=== PATIENT | female | born 1955 | race Caucasian/White ===

== ENCOUNTER 2022-12-24 17:12 | Emergency (ER) | payer MEDICARE, MEDICAID ==
[2022-12-24] MEDS: ALPRAZolam 0.25 MG Tab PO ONE (17:27)
[2022-12-24 21:15] LABS: CHLORIDE,CL 105 mmol/L (98-107); SODIUM,NA 144 mmol/L (136-145)
[2022-12-24 21:16] LABS: ANION GAP 11.6 mmol/L (5-15); ESTIMATED GFR 80 mL/min (>=60)
== END 2022-12-24 21:37 | disposition short-term general hospital (02) ==
LOC: VM.ED 17:12
DX: S72.491A Other fracture of lower end of right femur, initial encounter for closed fracture (principal); W18.30XA Fall on same level, unspecified, initial encounter; Y99.0 Civilian activity done for income or pay
CPT/HCPCS: 36415; 73560-RT; 80053; 85025; 99284; 99285; A9270-GY

== ENCOUNTER 2023-01-02 12:57 | Inpatient (IN) | payer MEDICARE, MEDICAID ==
[2023-01-02] MEDS ORDERED: Bisacodyl 10 MG Supp RECTAL PRN (15:53)
[2023-01-02] MEDS: QUEtiapine 25 MG Tab PO SCH (20:23)
[2023-01-02] MEDS: Divalproex Sodium 500 MG Tab.ER PO SCH (20:24)
[2023-01-02] MEDS: LORazepam 0.5 MG Tab PO PRN (20:24)
[2023-01-02] MEDS: Aspirin 81 MG Tab.EC PO SCH (20:24)
[2023-01-02] MEDS: Folic Acid 1 MG Tab PO SCH (20:24)
[2023-01-02] MEDS: Calcium Carbonate/Vitamin D3 1250 MG-5 MCG Tab PO SCH (20:25)
[2023-01-03] MEDS: predniSONE 10 MG Tab PO SCH (09:40)
[2023-01-03] MEDS: Aspirin 81 MG Tab.EC PO SCH ×2 (09:40→20:32)
[2023-01-03] MEDS: Furosemide 20 MG Tab PO SCH (09:41)
[2023-01-03] MEDS: Spironolactone 25 MG Tab PO SCH (09:41)
[2023-01-03] MEDS: Folic Acid 1 MG Tab PO SCH ×2 (09:41→20:32)
[2023-01-03] MEDS: Multivitamin Tab PO SCH (09:41)
[2023-01-03] MEDS: Loratadine 10 MG Tab PO SCH (09:41)
[2023-01-03] MEDS: Divalproex Sodium 500 MG Tab.ER PO SCH ×2 (09:41→20:32)
[2023-01-03] MEDS: Sertraline 25 MG Tab PO SCH (09:41)
[2023-01-03] MEDS: QUEtiapine 25 MG Tab PO SCH ×3 (09:41→20:32)
[2023-01-03] MEDS: Calcium Carbonate/Vitamin D3 1250 MG-5 MCG Tab PO SCH ×2 (09:41→20:32)
[2023-01-03] MEDS: Acetaminophen 500 MG Tab PO PRN (10:15)
[2023-01-03] MEDS: LORazepam 0.5 MG Tab PO PRN ×2 (13:40→21:55)
[2023-01-03] MEDS: Oxybutynin 5 MG Tab PO SCH (17:26)
[2023-01-04] MEDS: Acetaminophen 500 MG Tab PO PRN (09:27)
[2023-01-04] MEDS: Folic Acid 1 MG Tab PO SCH ×2 (09:27→20:39)
[2023-01-04] MEDS: Furosemide 20 MG Tab PO SCH (09:27)
[2023-01-04] MEDS: Loratadine 10 MG Tab PO SCH (09:27)
[2023-01-04] MEDS: Divalproex Sodium 500 MG Tab.ER PO SCH ×2 (09:27→20:39)
[2023-01-04] MEDS: Calcium Carbonate/Vitamin D3 1250 MG-5 MCG Tab PO SCH ×2 (09:27→20:39)
[2023-01-04] MEDS: QUEtiapine 25 MG Tab PO SCH ×3 (09:27→20:38)
[2023-01-04] MEDS: LORazepam 0.5 MG Tab PO PRN (09:28)
[2023-01-04] MEDS: Multivitamin Tab PO SCH (09:28)
[2023-01-04] MEDS: Sertraline 25 MG Tab PO SCH (09:28)
[2023-01-04] MEDS: Oxybutynin 5 MG Tab PO SCH ×2 (09:28→13:39)
[2023-01-04] MEDS: Aspirin 81 MG Tab.EC PO SCH ×2 (09:28→20:39)
[2023-01-04] MEDS: predniSONE 10 MG Tab PO SCH (09:28)
[2023-01-04] MEDS: Spironolactone 25 MG Tab PO SCH (09:28)
[2023-01-05] MEDS: LORazepam 0.5 MG Tab PO PRN ×3 (02:50→20:50)
[2023-01-05] MEDS: Spironolactone 25 MG Tab PO SCH (08:00)
[2023-01-05] MEDS: Furosemide 20 MG Tab PO SCH (08:00)
[2023-01-05] MEDS: Folic Acid 1 MG Tab PO SCH ×2 (08:00→20:49)
[2023-01-05] MEDS: Multivitamin Tab PO SCH (08:00)
[2023-01-05] MEDS: Sertraline 25 MG Tab PO SCH (08:00)
[2023-01-05] MEDS: Loratadine 10 MG Tab PO SCH (08:00)
[2023-01-05] MEDS: QUEtiapine 25 MG Tab PO SCH ×3 (08:00→20:50)
[2023-01-05] MEDS: Aspirin 81 MG Tab.EC PO SCH ×2 (08:00→20:50)
[2023-01-05] MEDS: predniSONE 10 MG Tab PO SCH (08:00)
[2023-01-05] MEDS: Oxybutynin 5 MG Tab PO SCH ×2 (08:00→14:01)
[2023-01-05] MEDS: Calcium Carbonate/Vitamin D3 1250 MG-5 MCG Tab PO SCH ×2 (08:00→20:49)
[2023-01-05] MEDS: Divalproex Sodium 500 MG Tab.ER PO SCH ×2 (08:01→20:49)
[2023-01-06] MEDS: Loratadine 10 MG Tab PO SCH (09:10)
[2023-01-06] MEDS: Aspirin 81 MG Tab.EC PO SCH ×2 (09:10→20:50)
[2023-01-06] MEDS: Multivitamin Tab PO SCH (09:10)
[2023-01-06] MEDS: Spironolactone 25 MG Tab PO SCH (09:10)
[2023-01-06] MEDS: Calcium Carbonate/Vitamin D3 1250 MG-5 MCG Tab PO SCH ×2 (09:10→20:49)
[2023-01-06] MEDS: Furosemide 20 MG Tab PO SCH (09:10)
[2023-01-06] MEDS: Sertraline 25 MG Tab PO SCH (09:10)
[2023-01-06] MEDS: predniSONE 5 MG Tab PO SCH (09:11)
[2023-01-06] MEDS: Oxybutynin 5 MG Tab PO SCH ×2 (09:11→13:42)
[2023-01-06] MEDS: QUEtiapine 25 MG Tab PO SCH ×3 (09:11→20:49)
[2023-01-06] MEDS: Folic Acid 1 MG Tab PO SCH ×2 (09:11→20:50)
[2023-01-06] MEDS: Divalproex Sodium 500 MG Tab.ER PO SCH ×2 (09:11→20:50)
[2023-01-06] MEDS: LORazepam 0.5 MG Tab PO PRN ×2 (11:14→20:51)
[2023-01-07] MEDS: Divalproex Sodium 500 MG Tab.ER PO SCH ×2 (10:05→20:48)
[2023-01-07] MEDS: Oxybutynin 5 MG Tab PO SCH ×2 (10:05→13:00)
[2023-01-07] MEDS: Spironolactone 25 MG Tab PO SCH (10:05)
[2023-01-07] MEDS: Sertraline 25 MG Tab PO SCH (10:05)
[2023-01-07] MEDS: LORazepam 0.5 MG Tab PO PRN ×2 (10:06→20:48)
[2023-01-07] MEDS: Folic Acid 1 MG Tab PO SCH ×2 (10:06→20:48)
[2023-01-07] MEDS: Aspirin 81 MG Tab.EC PO SCH ×2 (10:06→20:48)
[2023-01-07] MEDS: Calcium Carbonate/Vitamin D3 1250 MG-5 MCG Tab PO SCH ×2 (10:06→20:47)
[2023-01-07] MEDS: QUEtiapine 25 MG Tab PO SCH ×3 (10:06→20:48)
[2023-01-07] MEDS: Loratadine 10 MG Tab PO SCH (10:06)
[2023-01-07] MEDS: Furosemide 20 MG Tab PO SCH (10:06)
[2023-01-07] MEDS: predniSONE 5 MG Tab PO SCH (10:06)
[2023-01-07] MEDS: Multivitamin Tab PO SCH (10:06)
[2023-01-08] MEDS: LORazepam 0.5 MG Tab PO PRN ×2 (06:15→20:54)
[2023-01-08] MEDS: Aspirin 81 MG Tab.EC PO SCH ×2 (09:53→20:54)
[2023-01-08] MEDS: Furosemide 20 MG Tab PO SCH (09:53)
[2023-01-08] MEDS: Folic Acid 1 MG Tab PO SCH ×2 (09:53→20:55)
[2023-01-08] MEDS: Sertraline 25 MG Tab PO SCH (09:53)
[2023-01-08] MEDS: Loratadine 10 MG Tab PO SCH (09:54)
[2023-01-08] MEDS: QUEtiapine 25 MG Tab PO SCH ×3 (09:54→20:53)
[2023-01-08] MEDS: Multivitamin Tab PO SCH (09:54)
[2023-01-08] MEDS: predniSONE 5 MG Tab PO SCH (09:54)
[2023-01-08] MEDS: Spironolactone 25 MG Tab PO SCH (09:54)
[2023-01-08] MEDS: Calcium Carbonate/Vitamin D3 1250 MG-5 MCG Tab PO SCH ×2 (09:54→20:55)
[2023-01-08] MEDS: Divalproex Sodium 500 MG Tab.ER PO SCH ×2 (09:54→20:53)
[2023-01-08] MEDS: Oxybutynin 5 MG Tab PO SCH ×2 (09:54→14:11)
[2023-01-08] MEDS: Acetaminophen 500 MG Tab PO PRN (20:57)
[2023-01-09] MEDS: Alendronate 70 MG Tab PO SCH (07:09)
[2023-01-09] MEDS: LORazepam 0.5 MG Tab PO PRN ×2 (08:41→21:12)
[2023-01-09] MEDS: Aspirin 81 MG Tab.EC PO SCH ×2 (08:42→21:13)
[2023-01-09] MEDS: Loratadine 10 MG Tab PO SCH (08:42)
[2023-01-09] MEDS: Sertraline 25 MG Tab PO SCH (08:43)
[2023-01-09] MEDS: Furosemide 20 MG Tab PO SCH (08:43)
[2023-01-09] MEDS: predniSONE 5 MG Tab PO SCH (08:43)
[2023-01-09] MEDS: QUEtiapine 25 MG Tab PO SCH ×3 (08:43→21:13)
[2023-01-09] MEDS: Multivitamin Tab PO SCH (08:44)
[2023-01-09] MEDS: Spironolactone 25 MG Tab PO SCH (08:44)
[2023-01-09] MEDS: Folic Acid 1 MG Tab PO SCH ×2 (08:44→21:13)
[2023-01-09] MEDS: Divalproex Sodium 500 MG Tab.ER PO SCH ×2 (08:44→21:13)
[2023-01-09] MEDS: Oxybutynin 5 MG Tab PO SCH ×2 (08:44→13:57)
[2023-01-09] MEDS: Acetaminophen 500 MG Tab PO PRN ×3 (08:45→21:13)
[2023-01-09] MEDS: Calcium Carbonate/Vitamin D3 1250 MG-5 MCG Tab PO SCH ×2 (08:45→21:15)
[2023-01-10] MEDS: Folic Acid 1 MG Tab PO SCH ×2 (10:01→21:53)
[2023-01-10] MEDS: Furosemide 20 MG Tab PO SCH (10:01)
[2023-01-10] MEDS: Loratadine 10 MG Tab PO SCH (10:01)
[2023-01-10] MEDS: QUEtiapine 25 MG Tab PO SCH ×3 (10:02→21:53)
[2023-01-10] MEDS: Multivitamin Tab PO SCH (10:02)
[2023-01-10] MEDS: Spironolactone 25 MG Tab PO SCH (10:02)
[2023-01-10] MEDS: predniSONE 5 MG Tab PO SCH (10:02)
[2023-01-10] MEDS: Aspirin 81 MG Tab.EC PO SCH ×2 (10:02→21:53)
[2023-01-10] MEDS: Oxybutynin 5 MG Tab PO SCH ×2 (10:02→13:38)
[2023-01-10] MEDS: Sertraline 25 MG Tab PO SCH (10:02)
[2023-01-10] MEDS: Divalproex Sodium 500 MG Tab.ER PO SCH ×2 (10:03→21:53)
[2023-01-10] MEDS: Calcium Carbonate/Vitamin D3 1250 MG-5 MCG Tab PO SCH ×2 (10:03→21:53)
[2023-01-11] MEDS: LORazepam 0.5 MG Tab PO PRN ×2 (05:26→20:03)
[2023-01-11] MEDS: Acetaminophen 500 MG Tab PO PRN ×2 (05:35→20:06)
[2023-01-11] MEDS: Calcium Carbonate/Vitamin D3 1250 MG-5 MCG Tab PO SCH ×2 (09:32→20:05)
[2023-01-11] MEDS: QUEtiapine 25 MG Tab PO SCH ×3 (09:32→20:02)
[2023-01-11] MEDS: Divalproex Sodium 500 MG Tab.ER PO SCH ×2 (09:32→20:05)
[2023-01-11] MEDS: Multivitamin Tab PO SCH (09:32)
[2023-01-11] MEDS: Oxybutynin 5 MG Tab PO SCH ×2 (09:32→13:20)
[2023-01-11] MEDS: Folic Acid 1 MG Tab PO SCH ×2 (09:32→20:03)
[2023-01-11] MEDS: Sertraline 25 MG Tab PO SCH (09:32)
[2023-01-11] MEDS: Spironolactone 25 MG Tab PO SCH (09:32)
[2023-01-11] MEDS: Loratadine 10 MG Tab PO SCH (09:32)
[2023-01-11] MEDS: Aspirin 81 MG Tab.EC PO SCH ×2 (09:32→20:03)
[2023-01-11] MEDS: Furosemide 20 MG Tab PO SCH (09:32)
[2023-01-11] MEDS: predniSONE 5 MG Tab PO SCH (09:32)
[2023-01-12] MEDS: LORazepam 0.5 MG Tab PO PRN ×2 (07:50→19:49)
[2023-01-12] MEDS: Acetaminophen 500 MG Tab PO PRN ×2 (07:51→19:53)
[2023-01-12] MEDS: Calcium Carbonate/Vitamin D3 1250 MG-5 MCG Tab PO SCH ×3 (09:54→22:45)
[2023-01-12] MEDS: Oxybutynin 5 MG Tab PO SCH ×2 (09:54→15:25)
[2023-01-12] MEDS: Sertraline 25 MG Tab PO SCH (09:54)
[2023-01-12] MEDS: Multivitamin Tab PO SCH (09:55)
[2023-01-12] MEDS: Aspirin 81 MG Tab.EC PO SCH ×3 (09:55→22:45)
[2023-01-12] MEDS: Loratadine 10 MG Tab PO SCH (09:55)
[2023-01-12] MEDS: Folic Acid 1 MG Tab PO SCH ×3 (09:55→22:45)
[2023-01-12] MEDS: QUEtiapine 25 MG Tab PO SCH ×4 (09:55→22:45)
[2023-01-12] MEDS: predniSONE 5 MG Tab PO SCH (09:55)
[2023-01-12] MEDS: Divalproex Sodium 500 MG Tab.ER PO SCH ×3 (09:55→22:45)
[2023-01-12] MEDS: Furosemide 20 MG Tab PO SCH (09:55)
[2023-01-12] MEDS: Spironolactone 25 MG Tab PO SCH (09:55)
[2023-01-13] MEDS: Furosemide 20 MG Tab PO SCH (10:00)
[2023-01-13] MEDS: Loratadine 10 MG Tab PO SCH (10:04)
[2023-01-13] MEDS: Calcium Carbonate/Vitamin D3 1250 MG-5 MCG Tab PO SCH ×2 (10:04→20:02)
[2023-01-13] MEDS: Oxybutynin 5 MG Tab PO SCH ×2 (10:04→15:51)
[2023-01-13] MEDS: Spironolactone 25 MG Tab PO SCH (10:04)
[2023-01-13] MEDS: Divalproex Sodium 500 MG Tab.ER PO SCH ×2 (10:04→20:01)
[2023-01-13] MEDS: Aspirin 81 MG Tab.EC PO SCH ×2 (10:04→20:00)
[2023-01-13] MEDS: Multivitamin Tab PO SCH (10:04)
[2023-01-13] MEDS: Folic Acid 1 MG Tab PO SCH ×2 (10:05→20:01)
[2023-01-13] MEDS: predniSONE 5 MG Tab PO SCH (10:05)
[2023-01-13] MEDS: Sertraline 25 MG Tab PO SCH (10:05)
[2023-01-13] MEDS: QUEtiapine 25 MG Tab PO SCH ×3 (10:08→20:00)
[2023-01-13] MEDS: LORazepam 0.5 MG Tab PO PRN (20:00)
[2023-01-13] MEDS: Acetaminophen 500 MG Tab PO PRN (20:02)
[2023-01-14] MEDS: LORazepam 0.5 MG Tab PO PRN ×2 (04:43→20:16)
[2023-01-14] MEDS: Divalproex Sodium 500 MG Tab.ER PO SCH ×2 (09:48→20:15)
[2023-01-14] MEDS: QUEtiapine 25 MG Tab PO SCH ×3 (09:48→20:15)
[2023-01-14] MEDS: Aspirin 81 MG Tab.EC PO SCH ×2 (09:48→20:16)
[2023-01-14] MEDS: Oxybutynin 5 MG Tab PO SCH ×2 (09:48→13:27)
[2023-01-14] MEDS: Furosemide 20 MG Tab PO SCH (09:48)
[2023-01-14] MEDS: Loratadine 10 MG Tab PO SCH (09:49)
[2023-01-14] MEDS: predniSONE 5 MG Tab PO SCH (09:49)
[2023-01-14] MEDS: Spironolactone 25 MG Tab PO SCH (09:49)
[2023-01-14] MEDS: Multivitamin Tab PO SCH (09:49)
[2023-01-14] MEDS: Folic Acid 1 MG Tab PO SCH ×2 (09:49→20:16)
[2023-01-14] MEDS: Calcium Carbonate/Vitamin D3 1250 MG-5 MCG Tab PO SCH ×2 (09:49→20:16)
[2023-01-14] MEDS: Sertraline 25 MG Tab PO SCH (09:49)
[2023-01-14] MEDS: Acetaminophen 500 MG Tab PO PRN (13:29)
[2023-01-15] MEDS: Aspirin 81 MG Tab.EC PO SCH ×2 (08:12→20:00)
[2023-01-15] MEDS: Furosemide 20 MG Tab PO SCH (08:12)
[2023-01-15] MEDS: Sertraline 25 MG Tab PO SCH (08:13)
[2023-01-15] MEDS: Spironolactone 25 MG Tab PO SCH (08:13)
[2023-01-15] MEDS: predniSONE 5 MG Tab PO SCH (08:13)
[2023-01-15] MEDS: Divalproex Sodium 500 MG Tab.ER PO SCH ×2 (08:13→20:00)
[2023-01-15] MEDS: Oxybutynin 5 MG Tab PO SCH ×2 (08:13→13:19)
[2023-01-15] MEDS: Multivitamin Tab PO SCH (08:13)
[2023-01-15] MEDS: Loratadine 10 MG Tab PO SCH (08:13)
[2023-01-15] MEDS: QUEtiapine 25 MG Tab PO SCH ×3 (08:13→20:00)
[2023-01-15] MEDS: Calcium Carbonate/Vitamin D3 1250 MG-5 MCG Tab PO SCH ×2 (08:13→20:01)
[2023-01-15] MEDS: Folic Acid 1 MG Tab PO SCH ×2 (08:13→20:01)
[2023-01-15] MEDS: LORazepam 0.5 MG Tab PO PRN (20:02)
[2023-01-16] MEDS: Alendronate 70 MG Tab PO SCH (06:00)
[2023-01-16] MEDS: Divalproex Sodium 500 MG Tab.ER PO SCH ×2 (08:51→20:34)
[2023-01-16] MEDS: Multivitamin Tab PO SCH (08:51)
[2023-01-16] MEDS: Oxybutynin 5 MG Tab PO SCH ×2 (08:51→13:58)
[2023-01-16] MEDS: Aspirin 81 MG Tab.EC PO SCH ×2 (08:51→20:34)
[2023-01-16] MEDS: Calcium Carbonate/Vitamin D3 1250 MG-5 MCG Tab PO SCH ×2 (08:51→20:34)
[2023-01-16] MEDS: Loratadine 10 MG Tab PO SCH (08:51)
[2023-01-16] MEDS: Spironolactone 25 MG Tab PO SCH (08:51)
[2023-01-16] MEDS: QUEtiapine 25 MG Tab PO SCH ×3 (08:52→20:34)
[2023-01-16] MEDS: Furosemide 20 MG Tab PO SCH (08:52)
[2023-01-16] MEDS: Sertraline 25 MG Tab PO SCH (08:52)
[2023-01-16] MEDS: predniSONE 5 MG Tab PO SCH (08:52)
[2023-01-16] MEDS: Folic Acid 1 MG Tab PO SCH ×2 (08:52→20:34)
[2023-01-17] MEDS: Oxybutynin 5 MG Tab PO SCH ×2 (09:44→13:49)
[2023-01-17] MEDS: Furosemide 20 MG Tab PO SCH (09:44)
[2023-01-17] MEDS: Divalproex Sodium 500 MG Tab.ER PO SCH ×2 (09:44→20:16)
[2023-01-17] MEDS: Spironolactone 25 MG Tab PO SCH (09:44)
[2023-01-17] MEDS: Multivitamin Tab PO SCH (09:44)
[2023-01-17] MEDS: Loratadine 10 MG Tab PO SCH (09:44)
[2023-01-17] MEDS: Sertraline 25 MG Tab PO SCH (09:44)
[2023-01-17] MEDS: Acetaminophen 500 MG Tab PO PRN ×2 (09:44→13:50)
[2023-01-17] MEDS: predniSONE 5 MG Tab PO SCH (09:44)
[2023-01-17] MEDS: Folic Acid 1 MG Tab PO SCH ×2 (09:44→20:16)
[2023-01-17] MEDS: Calcium Carbonate/Vitamin D3 1250 MG-5 MCG Tab PO SCH ×2 (09:44→20:16)
[2023-01-17] MEDS: Aspirin 81 MG Tab.EC PO SCH ×2 (09:44→20:16)
[2023-01-17] MEDS: QUEtiapine 25 MG Tab PO SCH ×3 (09:44→20:16)
[2023-01-18] MEDS: Loratadine 10 MG Tab PO SCH (08:48)
[2023-01-18] MEDS: Divalproex Sodium 500 MG Tab.ER PO SCH ×2 (08:48→20:22)
[2023-01-18] MEDS: Folic Acid 1 MG Tab PO SCH ×2 (08:48→20:22)
[2023-01-18] MEDS: Calcium Carbonate/Vitamin D3 1250 MG-5 MCG Tab PO SCH ×2 (08:48→20:22)
[2023-01-18] MEDS: Sertraline 25 MG Tab PO SCH (08:48)
[2023-01-18] MEDS: Furosemide 20 MG Tab PO SCH (08:48)
[2023-01-18] MEDS: Aspirin 81 MG Tab.EC PO SCH ×2 (08:48→20:22)
[2023-01-18] MEDS: predniSONE 5 MG Tab PO SCH (08:49)
[2023-01-18] MEDS: Oxybutynin 5 MG Tab PO SCH ×2 (08:49→13:54)
[2023-01-18] MEDS: Acetaminophen 500 MG Tab PO PRN (08:49)
[2023-01-18] MEDS: Multivitamin Tab PO SCH (08:49)
[2023-01-18] MEDS: QUEtiapine 25 MG Tab PO SCH ×3 (08:49→20:23)
[2023-01-18] MEDS: Spironolactone 25 MG Tab PO SCH (08:50)
[2023-01-19] MEDS: Sertraline 25 MG Tab PO SCH (08:58)
[2023-01-19] MEDS: Calcium Carbonate/Vitamin D3 1250 MG-5 MCG Tab PO SCH ×2 (08:58→20:30)
[2023-01-19] MEDS: Folic Acid 1 MG Tab PO SCH ×2 (08:58→20:26)
[2023-01-19] MEDS: predniSONE 5 MG Tab PO SCH (08:58)
[2023-01-19] MEDS: Aspirin 81 MG Tab.EC PO SCH ×2 (08:58→20:26)
[2023-01-19] MEDS: QUEtiapine 25 MG Tab PO SCH ×3 (08:58→20:26)
[2023-01-19] MEDS: Loratadine 10 MG Tab PO SCH (08:58)
[2023-01-19] MEDS: Furosemide 20 MG Tab PO SCH (08:58)
[2023-01-19] MEDS: Divalproex Sodium 500 MG Tab.ER PO SCH ×2 (08:58→20:26)
[2023-01-19] MEDS: Spironolactone 25 MG Tab PO SCH (08:58)
[2023-01-19] MEDS: Multivitamin Tab PO SCH (08:58)
[2023-01-19] MEDS: Oxybutynin 5 MG Tab PO SCH ×2 (08:58→15:11)
[2023-01-20] MEDS: LORazepam 0.5 MG Tab PO PRN ×2 (04:36→20:01)
[2023-01-20] MEDS: Acetaminophen 500 MG Tab PO PRN ×2 (05:53→09:58)
[2023-01-20] MEDS: Spironolactone 25 MG Tab PO SCH (09:01)
[2023-01-20] MEDS: Furosemide 20 MG Tab PO SCH (09:01)
[2023-01-20] MEDS: Divalproex Sodium 500 MG Tab.ER PO SCH ×2 (09:01→20:03)
[2023-01-20] MEDS: Aspirin 81 MG Tab.EC PO SCH ×2 (09:01→20:02)
[2023-01-20] MEDS: Loratadine 10 MG Tab PO SCH (09:01)
[2023-01-20] MEDS: Sertraline 25 MG Tab PO SCH (09:02)
[2023-01-20] MEDS: Folic Acid 1 MG Tab PO SCH ×2 (09:02→20:02)
[2023-01-20] MEDS: Oxybutynin 5 MG Tab PO SCH ×2 (09:02→14:08)
[2023-01-20] MEDS: predniSONE 5 MG Tab PO SCH (09:02)
[2023-01-20] MEDS: Multivitamin Tab PO SCH (09:02)
[2023-01-20] MEDS: QUEtiapine 25 MG Tab PO SCH ×3 (09:02→20:01)
[2023-01-20] MEDS: Calcium Carbonate/Vitamin D3 1250 MG-5 MCG Tab PO SCH ×2 (09:04→20:01)
[2023-01-21] MEDS: Loratadine 10 MG Tab PO SCH (09:38)
[2023-01-21] MEDS: Calcium Carbonate/Vitamin D3 1250 MG-5 MCG Tab PO SCH ×2 (09:38→20:18)
[2023-01-21] MEDS: Spironolactone 25 MG Tab PO SCH (09:38)
[2023-01-21] MEDS: Multivitamin Tab PO SCH (09:38)
[2023-01-21] MEDS: Aspirin 81 MG Tab.EC PO SCH ×2 (09:39→20:18)
[2023-01-21] MEDS: predniSONE 5 MG Tab PO SCH (09:39)
[2023-01-21] MEDS: Divalproex Sodium 500 MG Tab.ER PO SCH ×2 (09:39→20:18)
[2023-01-21] MEDS: Folic Acid 1 MG Tab PO SCH ×2 (09:39→20:18)
[2023-01-21] MEDS: Sertraline 25 MG Tab PO SCH (09:39)
[2023-01-21] MEDS: Oxybutynin 5 MG Tab PO SCH ×2 (09:39→13:24)
[2023-01-21] MEDS: Furosemide 20 MG Tab PO SCH (09:39)
[2023-01-21] MEDS: QUEtiapine 25 MG Tab PO SCH ×3 (09:39→20:18)
[2023-01-21] MEDS: LORazepam 0.5 MG Tab PO PRN (13:11)
[2023-01-22] MEDS ORDERED: METHOTREXATE SODIUM 25 MG/ML IM SCH (09:00)
[2023-01-22] MEDS: Furosemide 20 MG Tab PO SCH (09:20)
[2023-01-22] MEDS: Aspirin 81 MG Tab.EC PO SCH ×2 (09:20→20:15)
[2023-01-22] MEDS: Multivitamin Tab PO SCH (09:20)
[2023-01-22] MEDS: Oxybutynin 5 MG Tab PO SCH ×2 (09:20→13:00)
[2023-01-22] MEDS: Calcium Carbonate/Vitamin D3 1250 MG-5 MCG Tab PO SCH ×2 (09:20→20:15)
[2023-01-22] MEDS: QUEtiapine 25 MG Tab PO SCH ×3 (09:20→20:15)
[2023-01-22] MEDS: Sertraline 25 MG Tab PO SCH (09:20)
[2023-01-22] MEDS: Divalproex Sodium 500 MG Tab.ER PO SCH ×2 (09:20→20:15)
[2023-01-22] MEDS: Folic Acid 1 MG Tab PO SCH ×2 (09:20→20:15)
[2023-01-22] MEDS: Spironolactone 25 MG Tab PO SCH (09:20)
[2023-01-22] MEDS: Loratadine 10 MG Tab PO SCH (09:20)
[2023-01-22] MEDS: predniSONE 5 MG Tab PO SCH (09:20)
[2023-01-22] MEDS ORDERED: METHOTREXATE SODIUM 25 MG/ML SUBCUT SCH (09:44)
[2023-01-22] MEDS: Acetaminophen 500 MG Tab PO PRN (12:59)
[2023-01-22] MEDS: Methotrexate 2.5 MG Tab PO SCH (13:40)
[2023-01-23] MEDS: Alendronate 70 MG Tab PO SCH (06:02)
[2023-01-23] MEDS: Acetaminophen 500 MG Tab PO PRN ×2 (08:27→13:47)
[2023-01-23] MEDS: Divalproex Sodium 500 MG Tab.ER PO SCH ×2 (08:29→21:51)
[2023-01-23] MEDS: Aspirin 81 MG Tab.EC PO SCH ×2 (08:29→21:51)
[2023-01-23] MEDS: Sertraline 25 MG Tab PO SCH (08:29)
[2023-01-23] MEDS: Furosemide 20 MG Tab PO SCH (08:30)
[2023-01-23] MEDS: predniSONE 5 MG Tab PO SCH (08:30)
[2023-01-23] MEDS: Calcium Carbonate/Vitamin D3 1250 MG-5 MCG Tab PO SCH ×2 (08:30→21:51)
[2023-01-23] MEDS: Loratadine 10 MG Tab PO SCH (08:30)
[2023-01-23] MEDS: QUEtiapine 25 MG Tab PO SCH ×2 (08:30→18:59)
[2023-01-23] MEDS: Folic Acid 1 MG Tab PO SCH ×2 (08:30→21:51)
[2023-01-23] MEDS: Oxybutynin 5 MG Tab PO SCH ×2 (08:30→13:43)
[2023-01-23] MEDS: Spironolactone 25 MG Tab PO SCH (08:30)
[2023-01-23] MEDS: Multivitamin Tab PO SCH (08:31)
[2023-01-23 08:50] LABS: ANION GAP 12.8 mmol/L (5-15)
[2023-01-23] MEDS: LORazepam 0.5 MG Tab PO PRN (09:01)
[2023-01-23 11:07] LABS: CORONAVIRUS COVID-19 NAA POSITIVE (NEGATIVE)
[2023-01-23] MEDS: Nirmatrelvir/Ritonavir 300 MG/100 MG Dose Pack PO SCH ×2 (13:41→21:50)
[2023-01-24] MEDS: Divalproex Sodium 500 MG Tab.ER PO SCH ×2 (09:42→21:58)
[2023-01-24] MEDS: Calcium Carbonate/Vitamin D3 1250 MG-5 MCG Tab PO SCH ×2 (09:42→21:58)
[2023-01-24] MEDS: Sertraline 25 MG Tab PO SCH (09:42)
[2023-01-24] MEDS: Furosemide 20 MG Tab PO SCH (09:42)
[2023-01-24] MEDS: Folic Acid 1 MG Tab PO SCH ×2 (09:42→21:58)
[2023-01-24] MEDS: Oxybutynin 5 MG Tab PO SCH ×2 (09:42→13:27)
[2023-01-24] MEDS: Aspirin 81 MG Tab.EC PO SCH ×2 (09:42→21:58)
[2023-01-24] MEDS: predniSONE 5 MG Tab PO SCH (09:42)
[2023-01-24] MEDS: Spironolactone 25 MG Tab PO SCH (09:42)
[2023-01-24] MEDS: Loratadine 10 MG Tab PO SCH (09:42)
[2023-01-24] MEDS: Multivitamin Tab PO SCH (09:42)
[2023-01-24] MEDS: Nirmatrelvir/Ritonavir 300 MG/100 MG Dose Pack PO SCH ×2 (09:43→21:58)
[2023-01-25] MEDS: Sertraline 25 MG Tab PO SCH (10:11)
[2023-01-25] MEDS: Multivitamin Tab PO SCH (10:11)
[2023-01-25] MEDS: predniSONE 5 MG Tab PO SCH (10:11)
[2023-01-25] MEDS: Calcium Carbonate/Vitamin D3 1250 MG-5 MCG Tab PO SCH ×2 (10:12→22:44)
[2023-01-25] MEDS: Nirmatrelvir/Ritonavir 300 MG/100 MG Dose Pack PO SCH ×2 (10:12→22:43)
[2023-01-25] MEDS: Folic Acid 1 MG Tab PO SCH ×2 (10:12→22:45)
[2023-01-25] MEDS: Furosemide 20 MG Tab PO SCH (10:12)
[2023-01-25] MEDS: Divalproex Sodium 500 MG Tab.ER PO SCH ×2 (10:12→22:43)
[2023-01-25] MEDS: Loratadine 10 MG Tab PO SCH (10:12)
[2023-01-25] MEDS: Aspirin 81 MG Tab.EC PO SCH ×2 (10:12→22:45)
[2023-01-25] MEDS: Spironolactone 25 MG Tab PO SCH (10:12)
[2023-01-25] MEDS: Oxybutynin 5 MG Tab PO SCH ×2 (10:12→14:38)
[2023-01-25] MEDS: Acetaminophen 500 MG Tab PO PRN (22:44)
[2023-01-26] MEDS: predniSONE 5 MG Tab PO SCH (09:13)
[2023-01-26] MEDS: Furosemide 20 MG Tab PO SCH (09:13)
[2023-01-26] MEDS: Multivitamin Tab PO SCH (09:14)
[2023-01-26] MEDS: Aspirin 81 MG Tab.EC PO SCH ×2 (09:14→21:57)
[2023-01-26] MEDS: Divalproex Sodium 500 MG Tab.ER PO SCH ×2 (09:14→21:57)
[2023-01-26] MEDS: Calcium Carbonate/Vitamin D3 1250 MG-5 MCG Tab PO SCH ×2 (09:14→21:57)
[2023-01-26] MEDS: Oxybutynin 5 MG Tab PO SCH ×2 (09:14→13:06)
[2023-01-26] MEDS: Sertraline 25 MG Tab PO SCH (09:14)
[2023-01-26] MEDS: Loratadine 10 MG Tab PO SCH (09:14)
[2023-01-26] MEDS: Folic Acid 1 MG Tab PO SCH ×2 (09:14→21:57)
[2023-01-26] MEDS: Spironolactone 25 MG Tab PO SCH (09:14)
[2023-01-26] MEDS: Nirmatrelvir/Ritonavir 300 MG/100 MG Dose Pack PO SCH ×2 (09:15→21:56)
[2023-01-27] MEDS: Oxybutynin 5 MG Tab PO SCH ×2 (10:03→14:38)
[2023-01-27] MEDS: predniSONE 5 MG Tab PO SCH (10:04)
[2023-01-27] MEDS: Loratadine 10 MG Tab PO SCH (10:04)
[2023-01-27] MEDS: Multivitamin Tab PO SCH (10:04)
[2023-01-27] MEDS: Spironolactone 25 MG Tab PO SCH (10:04)
[2023-01-27] MEDS: Aspirin 81 MG Tab.EC PO SCH ×2 (10:04→20:28)
[2023-01-27] MEDS: Calcium Carbonate/Vitamin D3 1250 MG-5 MCG Tab PO SCH ×2 (10:04→20:28)
[2023-01-27] MEDS: Divalproex Sodium 500 MG Tab.ER PO SCH ×2 (10:05→20:28)
[2023-01-27] MEDS: Folic Acid 1 MG Tab PO SCH ×2 (10:05→20:28)
[2023-01-27] MEDS: Sertraline 25 MG Tab PO SCH (10:05)
[2023-01-27] MEDS: Nirmatrelvir/Ritonavir 300 MG/100 MG Dose Pack PO SCH ×2 (10:05→20:33)
[2023-01-27] MEDS: Furosemide 20 MG Tab PO SCH (10:06)
[2023-01-27] MEDS: LORazepam 0.5 MG Tab PO PRN ×2 (10:24→20:28)
[2023-01-28] MEDS: Oxybutynin 5 MG Tab PO SCH ×2 (09:29→13:48)
[2023-01-28] MEDS: Folic Acid 1 MG Tab PO SCH ×2 (09:29→20:22)
[2023-01-28] MEDS: Furosemide 20 MG Tab PO SCH (09:29)
[2023-01-28] MEDS: Divalproex Sodium 500 MG Tab.ER PO SCH ×2 (09:29→20:21)
[2023-01-28] MEDS: Spironolactone 25 MG Tab PO SCH (09:29)
[2023-01-28] MEDS: Multivitamin Tab PO SCH (09:29)
[2023-01-28] MEDS: Aspirin 81 MG Tab.EC PO SCH ×2 (09:29→20:22)
[2023-01-28] MEDS: Sertraline 25 MG Tab PO SCH (09:29)
[2023-01-28] MEDS: predniSONE 5 MG Tab PO SCH (09:29)
[2023-01-28] MEDS: Loratadine 10 MG Tab PO SCH (09:30)
[2023-01-28] MEDS: Calcium Carbonate/Vitamin D3 1250 MG-5 MCG Tab PO SCH ×2 (09:30→20:22)
[2023-01-28] MEDS: QUEtiapine 25 MG Tab PO SCH (20:22)
[2023-01-29] MEDS: Sertraline 25 MG Tab PO SCH (09:18)
[2023-01-29] MEDS: Furosemide 20 MG Tab PO SCH (09:18)
[2023-01-29] MEDS: Oxybutynin 5 MG Tab PO SCH ×2 (09:18→14:31)
[2023-01-29] MEDS: LORazepam 0.5 MG Tab PO PRN (09:19)
[2023-01-29] MEDS: Multivitamin Tab PO SCH (09:19)
[2023-01-29] MEDS: QUEtiapine 25 MG Tab PO SCH ×3 (09:19→20:37)
[2023-01-29] MEDS: Calcium Carbonate/Vitamin D3 1250 MG-5 MCG Tab PO SCH ×2 (09:19→20:36)
[2023-01-29] MEDS: Folic Acid 1 MG Tab PO SCH ×2 (09:19→20:37)
[2023-01-29] MEDS: Spironolactone 25 MG Tab PO SCH (09:19)
[2023-01-29] MEDS: Loratadine 10 MG Tab PO SCH (09:19)
[2023-01-29] MEDS: predniSONE 5 MG Tab PO SCH (09:19)
[2023-01-29] MEDS: Divalproex Sodium 500 MG Tab.ER PO SCH ×2 (09:19→20:36)
[2023-01-29] MEDS: Aspirin 81 MG Tab.EC PO SCH ×2 (09:19→20:37)
[2023-01-29] MEDS: Methotrexate 2.5 MG Tab PO SCH (14:35)
[2023-01-30] MEDS: Alendronate 70 MG Tab PO SCH (07:42)
[2023-01-30] MEDS: Folic Acid 1 MG Tab PO SCH ×2 (09:37→21:44)
[2023-01-30] MEDS: Spironolactone 25 MG Tab PO SCH (09:37)
[2023-01-30] MEDS: Calcium Carbonate/Vitamin D3 1250 MG-5 MCG Tab PO SCH ×2 (09:37→21:44)
[2023-01-30] MEDS: QUEtiapine 25 MG Tab PO SCH ×3 (09:37→21:44)
[2023-01-30] MEDS: Furosemide 20 MG Tab PO SCH (09:37)
[2023-01-30] MEDS: Divalproex Sodium 500 MG Tab.ER PO SCH ×2 (09:37→21:44)
[2023-01-30] MEDS: Loratadine 10 MG Tab PO SCH (09:37)
[2023-01-30] MEDS: Sertraline 25 MG Tab PO SCH (09:37)
[2023-01-30] MEDS: Aspirin 81 MG Tab.EC PO SCH ×2 (09:37→21:44)
[2023-01-30] MEDS: Multivitamin Tab PO SCH (09:37)
[2023-01-30] MEDS: predniSONE 5 MG Tab PO SCH (09:38)
[2023-01-30] MEDS: Oxybutynin 5 MG Tab PO SCH ×2 (09:38→16:35)
[2023-01-30] MEDS: LORazepam 0.5 MG Tab PO PRN (11:24)
[2023-01-31] MEDS: Oxybutynin 5 MG Tab PO SCH ×2 (09:07→14:15)
[2023-01-31] MEDS: Spironolactone 25 MG Tab PO SCH (09:07)
[2023-01-31] MEDS: Calcium Carbonate/Vitamin D3 1250 MG-5 MCG Tab PO SCH ×2 (09:08→20:23)
[2023-01-31] MEDS: Sertraline 25 MG Tab PO SCH (09:08)
[2023-01-31] MEDS: Aspirin 81 MG Tab.EC PO SCH ×2 (09:08→20:23)
[2023-01-31] MEDS: Multivitamin Tab PO SCH (09:08)
[2023-01-31] MEDS: Folic Acid 1 MG Tab PO SCH ×2 (09:08→20:24)
[2023-01-31] MEDS: predniSONE 5 MG Tab PO SCH (09:08)
[2023-01-31] MEDS: Furosemide 20 MG Tab PO SCH (09:08)
[2023-01-31] MEDS: Divalproex Sodium 500 MG Tab.ER PO SCH ×2 (09:08→20:23)
[2023-01-31] MEDS: QUEtiapine 25 MG Tab PO SCH ×3 (09:08→20:24)
[2023-01-31] MEDS: Loratadine 10 MG Tab PO SCH (09:08)
[2023-02-01] MEDS: Spironolactone 25 MG Tab PO SCH (09:57)
[2023-02-01] MEDS: QUEtiapine 25 MG Tab PO SCH ×3 (09:57→20:15)
[2023-02-01] MEDS: Aspirin 81 MG Tab.EC PO SCH ×2 (09:57→20:15)
[2023-02-01] MEDS: Calcium Carbonate/Vitamin D3 1250 MG-5 MCG Tab PO SCH ×2 (09:57→20:15)
[2023-02-01] MEDS: Divalproex Sodium 500 MG Tab.ER PO SCH ×2 (09:57→20:15)
[2023-02-01] MEDS: Sertraline 25 MG Tab PO SCH (09:57)
[2023-02-01] MEDS: Multivitamin Tab PO SCH (09:57)
[2023-02-01] MEDS: Oxybutynin 5 MG Tab PO SCH ×2 (09:57→13:42)
[2023-02-01] MEDS: predniSONE 5 MG Tab PO SCH (09:57)
[2023-02-01] MEDS: Folic Acid 1 MG Tab PO SCH ×2 (09:57→20:15)
[2023-02-01] MEDS: Furosemide 20 MG Tab PO SCH (09:57)
[2023-02-01] MEDS: Loratadine 10 MG Tab PO SCH (09:57)
[2023-02-02] MEDS: Oxybutynin 5 MG Tab PO SCH ×2 (09:38→13:46)
[2023-02-02] MEDS: predniSONE 5 MG Tab PO SCH (09:38)
[2023-02-02] MEDS: Aspirin 81 MG Tab.EC PO SCH ×2 (09:38→20:18)
[2023-02-02] MEDS: Divalproex Sodium 500 MG Tab.ER PO SCH ×2 (09:38→20:17)
[2023-02-02] MEDS: Sertraline 25 MG Tab PO SCH (09:38)
[2023-02-02] MEDS: Furosemide 20 MG Tab PO SCH (09:38)
[2023-02-02] MEDS: Folic Acid 1 MG Tab PO SCH ×2 (09:38→20:18)
[2023-02-02] MEDS: Multivitamin Tab PO SCH (09:38)
[2023-02-02] MEDS: Loratadine 10 MG Tab PO SCH (09:38)
[2023-02-02] MEDS: Calcium Carbonate/Vitamin D3 1250 MG-5 MCG Tab PO SCH ×2 (09:38→20:18)
[2023-02-02] MEDS: Spironolactone 25 MG Tab PO SCH (09:39)
[2023-02-02] MEDS: QUEtiapine 25 MG Tab PO SCH ×3 (09:39→20:18)
[2023-02-02] MEDS: LORazepam 0.5 MG Tab PO PRN (13:01)
[2023-02-03] MEDS: Multivitamin Tab PO SCH (09:06)
[2023-02-03] MEDS: Calcium Carbonate/Vitamin D3 1250 MG-5 MCG Tab PO SCH ×2 (09:06→19:59)
[2023-02-03] MEDS: Divalproex Sodium 500 MG Tab.ER PO SCH ×2 (09:06→19:59)
[2023-02-03] MEDS: Folic Acid 1 MG Tab PO SCH ×2 (09:07→19:59)
[2023-02-03] MEDS: predniSONE 5 MG Tab PO SCH (09:07)
[2023-02-03] MEDS: Sertraline 25 MG Tab PO SCH (09:07)
[2023-02-03] MEDS: QUEtiapine 25 MG Tab PO SCH ×3 (09:07→19:59)
[2023-02-03] MEDS: Oxybutynin 5 MG Tab PO SCH ×2 (09:07→14:41)
[2023-02-03] MEDS: Loratadine 10 MG Tab PO SCH (09:08)
[2023-02-03] MEDS: Spironolactone 25 MG Tab PO SCH (09:08)
[2023-02-03] MEDS: Aspirin 81 MG Tab.EC PO SCH ×2 (09:08→19:59)
[2023-02-03] MEDS: Furosemide 20 MG Tab PO SCH (09:08)
[2023-02-04] MEDS: Folic Acid 1 MG Tab PO SCH ×2 (08:40→20:38)
[2023-02-04] MEDS: Sertraline 25 MG Tab PO SCH (08:40)
[2023-02-04] MEDS: Furosemide 20 MG Tab PO SCH (08:40)
[2023-02-04] MEDS: Oxybutynin 5 MG Tab PO SCH ×2 (08:40→14:36)
[2023-02-04] MEDS: Divalproex Sodium 500 MG Tab.ER PO SCH ×2 (08:40→20:38)
[2023-02-04] MEDS: Multivitamin Tab PO SCH (08:40)
[2023-02-04] MEDS: predniSONE 5 MG Tab PO SCH (08:40)
[2023-02-04] MEDS: Spironolactone 25 MG Tab PO SCH (08:40)
[2023-02-04] MEDS: Aspirin 81 MG Tab.EC PO SCH ×2 (08:40→20:38)
[2023-02-04] MEDS: Calcium Carbonate/Vitamin D3 1250 MG-5 MCG Tab PO SCH ×2 (08:40→20:38)
[2023-02-04] MEDS: QUEtiapine 25 MG Tab PO SCH ×3 (08:40→20:38)
[2023-02-04] MEDS: Loratadine 10 MG Tab PO SCH (08:40)
[2023-02-05 07:17] LABS: ANION GAP 11.9 mmol/L (5-15)
[2023-02-05] MEDS: Aspirin 81 MG Tab.EC PO SCH ×2 (08:55→20:36)
[2023-02-05] MEDS: Loratadine 10 MG Tab PO SCH (08:55)
[2023-02-05] MEDS: Furosemide 20 MG Tab PO SCH (08:55)
[2023-02-05] MEDS: Oxybutynin 5 MG Tab PO SCH ×2 (08:55→13:58)
[2023-02-05] MEDS: predniSONE 5 MG Tab PO SCH (08:56)
[2023-02-05] MEDS: Calcium Carbonate/Vitamin D3 1250 MG-5 MCG Tab PO SCH ×2 (08:56→20:36)
[2023-02-05] MEDS: Sertraline 25 MG Tab PO SCH (08:56)
[2023-02-05] MEDS: Multivitamin Tab PO SCH (08:56)
[2023-02-05] MEDS: Folic Acid 1 MG Tab PO SCH ×2 (08:56→20:36)
[2023-02-05] MEDS: QUEtiapine 25 MG Tab PO SCH ×3 (08:56→20:36)
[2023-02-05] MEDS: Spironolactone 25 MG Tab PO SCH (08:56)
[2023-02-05] MEDS: Divalproex Sodium 500 MG Tab.ER PO SCH ×2 (08:56→20:36)
[2023-02-05] MEDS: Methotrexate 2.5 MG Tab PO SCH (12:47)
[2023-02-06] MEDS: Alendronate 70 MG Tab PO SCH (06:31)
[2023-02-06] MEDS: Multivitamin Tab PO SCH (09:41)
[2023-02-06] MEDS: Divalproex Sodium 500 MG Tab.ER PO SCH ×2 (09:41→20:11)
[2023-02-06] MEDS: Calcium Carbonate/Vitamin D3 1250 MG-5 MCG Tab PO SCH ×2 (09:41→20:11)
[2023-02-06] MEDS: predniSONE 5 MG Tab PO SCH (09:44)
[2023-02-06] MEDS: Folic Acid 1 MG Tab PO SCH ×2 (09:44→20:11)
[2023-02-06] MEDS: Loratadine 10 MG Tab PO SCH (09:44)
[2023-02-06] MEDS: Aspirin 81 MG Tab.EC PO SCH ×2 (09:44→20:11)
[2023-02-06] MEDS: QUEtiapine 25 MG Tab PO SCH ×3 (09:44→20:11)
[2023-02-06] MEDS: Furosemide 20 MG Tab PO SCH (09:44)
[2023-02-06] MEDS: Sertraline 25 MG Tab PO SCH (09:44)
[2023-02-06] MEDS: Oxybutynin 5 MG Tab PO SCH ×2 (09:44→14:39)
[2023-02-06] MEDS: Spironolactone 25 MG Tab PO SCH (09:44)
[2023-02-06] MEDS: LORazepam 0.5 MG Tab PO PRN (10:37)
[2023-02-07] MEDS: Multivitamin Tab PO SCH (09:18)
[2023-02-07] MEDS: Divalproex Sodium 500 MG Tab.ER PO SCH ×3 (09:18→20:29)
[2023-02-07] MEDS: Calcium Carbonate/Vitamin D3 1250 MG-5 MCG Tab PO SCH ×3 (09:18→20:29)
[2023-02-07] MEDS: predniSONE 5 MG Tab PO SCH (09:19)
[2023-02-07] MEDS: Sertraline 25 MG Tab PO SCH (09:19)
[2023-02-07] MEDS: Aspirin 81 MG Tab.EC PO SCH ×3 (09:19→20:29)
[2023-02-07] MEDS: Spironolactone 25 MG Tab PO SCH (09:19)
[2023-02-07] MEDS: Folic Acid 1 MG Tab PO SCH ×3 (09:19→20:29)
[2023-02-07] MEDS: Loratadine 10 MG Tab PO SCH (09:19)
[2023-02-07] MEDS: QUEtiapine 25 MG Tab PO SCH ×4 (09:19→20:29)
[2023-02-07] MEDS: Furosemide 20 MG Tab PO SCH (09:19)
[2023-02-07] MEDS: Oxybutynin 5 MG Tab PO SCH ×2 (09:20→14:11)
[2023-02-07] MEDS: LORazepam 0.5 MG Tab PO PRN (10:18)
[2023-02-08] MEDS: Calcium Carbonate/Vitamin D3 1250 MG-5 MCG Tab PO SCH ×2 (09:35→20:16)
[2023-02-08] MEDS: Divalproex Sodium 500 MG Tab.ER PO SCH ×2 (09:35→20:16)
[2023-02-08] MEDS: Multivitamin Tab PO SCH (09:36)
[2023-02-08] MEDS: Aspirin 81 MG Tab.EC PO SCH ×2 (09:39→20:17)
[2023-02-08] MEDS: predniSONE 5 MG Tab PO SCH (09:39)
[2023-02-08] MEDS: Oxybutynin 5 MG Tab PO SCH ×2 (09:39→13:26)
[2023-02-08] MEDS: QUEtiapine 25 MG Tab PO SCH ×3 (09:40→20:16)
[2023-02-08] MEDS: Loratadine 10 MG Tab PO SCH (09:40)
[2023-02-08] MEDS: Sertraline 25 MG Tab PO SCH (09:40)
[2023-02-08] MEDS: Spironolactone 25 MG Tab PO SCH (09:40)
[2023-02-08] MEDS: Furosemide 20 MG Tab PO SCH (09:40)
[2023-02-08] MEDS: Folic Acid 1 MG Tab PO SCH ×2 (09:40→20:16)
[2023-02-08] MEDS: LORazepam 0.5 MG Tab PO PRN (13:26)
[2023-02-09] MEDS: predniSONE 5 MG Tab PO SCH (08:56)
[2023-02-09] MEDS: Oxybutynin 5 MG Tab PO SCH ×2 (08:56→13:30)
[2023-02-09] MEDS: Multivitamin Tab PO SCH (08:56)
[2023-02-09] MEDS: Sertraline 25 MG Tab PO SCH (08:56)
[2023-02-09] MEDS: Spironolactone 25 MG Tab PO SCH (08:56)
[2023-02-09] MEDS: Calcium Carbonate/Vitamin D3 1250 MG-5 MCG Tab PO SCH (08:56)
[2023-02-09] MEDS: Loratadine 10 MG Tab PO SCH (08:56)
[2023-02-09] MEDS: QUEtiapine 25 MG Tab PO SCH ×2 (08:56→12:20)
[2023-02-09] MEDS: Divalproex Sodium 500 MG Tab.ER PO SCH (08:56)
[2023-02-09] MEDS: Folic Acid 1 MG Tab PO SCH (08:56)
[2023-02-09] MEDS: Furosemide 20 MG Tab PO SCH (08:56)
[2023-02-09] MEDS: Aspirin 81 MG Tab.EC PO SCH (08:57)
== END 2023-02-09 14:30 | disposition home or self-care (01) | DRG 561 ==
LOC: VM.MS 14:04
PROVIDERS: ADMIT Family Medicine; ATTEND Family Medicine
DX: Z47.89 Encounter for other orthopedic aftercare (principal); F41.9 Anxiety disorder, unspecified; M81.0 Age-related osteoporosis without current pathological fracture; D53.9 Nutritional anemia, unspecified; S72.401D Unspecified fracture of lower end of right femur, subsequent encounter for closed fracture with routine healing; F71 Moderate intellectual disabilities; N32.81 Overactive bladder; L40.50 Arthropathic psoriasis, unspecified; K59.09 Other constipation; G40.909 Epilepsy, unspecified, not intractable, without status epilepticus; Z96.651 Presence of right artificial knee joint; Z79.82 Long term (current) use of aspirin; Z79.899 Other long term (current) drug therapy; I25.2 Old myocardial infarction
CPT/HCPCS: 0240U; 36415; 80048; 80053; 82248; 83605; 84145; 85025; 86140; 87040; 97110-GP; 97116-GP; 97161-GP; 97165-GO; 97530-GP; 97535-GO; A9270-GY; J7512; J8610